=== PATIENT | female | born 1980 | race Asian ===

== ENCOUNTER 2019-11-21 18:41 | Emergency (ER) | payer SELFPAY ==
[~2019-11-21] VITALS: Ht 167.6 cm; Wt 72.0 kg
[2019-11-21 18:55] VITALS: BP 140/93
[2019-11-21] MEDS ORDERED: TETanus/Pertussis (Acell)/Diphther VAC/PF (Tdap-Adult) 0.5ml syringe IMVAC ONE (19:10)
== END 2019-11-21 20:02 | disposition home or self-care (01) ==
LOC: ER 18:43
DX: S61.411A Laceration without foreign body of right hand, initial encounter (principal); R50.9 Fever, unspecified; W26.0XXA Contact with knife, initial encounter; Y93.89 Activity, other specified; Y92.89 Other specified places as the place of occurrence of the external cause; Y99.8 Other external cause status
CPT/HCPCS: 12002; 90471; 90715; 99283